=== PATIENT | female | born 1995 | race Caucasian/White ===

== ENCOUNTER 2018-05-10 15:17 | Outpatient (CLI) | END 2018-05-10 17:54 | disposition home or self-care (01) ==

== ENCOUNTER 2018-05-25 04:00 | Outpatient (CLI) | END 2018-05-25 06:58 | disposition home or self-care (01) ==

== ENCOUNTER 2018-05-26 01:00 | Inpatient (IN) | END 2018-05-28 16:45 | disposition home or self-care (01) | DRG 775 ==